=== PATIENT | male | born 1995 | race Caucasian/White ===

== ENCOUNTER 2022-02-16 14:36 | Inpatient (IN) | payer OTHER, SELFPAY ==
[2022-02-16 14:45] VITALS: BP 130/90; PULSE 98; O2SAT 98
[2022-02-16 14:46] VITALS: BP 120/84; PULSE 95; RESP 16; TEMP 37.2; O2SAT 95; BMI 26.4
--- NOTE | 2022-02-16 14:46 | ED_ITS ---
HPI - Psych General Chief Complaint: Psychiatric Symptoms Stated Complaint: CRISIS,SEC 12,PARANOID PER EMS Time Seen by Provider: 02/16/22 14:45 Source: patient Mode of arrival: EMS Limitations: other (will not answer questions just shakes head yes or no) History of Present Illness HPI Narrative: 26 yo male with schizoaffective disorder here with c/o hearing and seeing things, naked in the street, decompensated behaviors. already has bed in place, S12 from community MD complaint: feels depressed, anxiety and hallucinations Onset (ago): day(s) Duration: getting worse History of same: Yes Relieving factors: none Exacerbating factors: other Context: not taking psychiatric medications Associated psychiatric symptoms: auditory hallucinations and delusions Associated symptoms: denies other symptoms Treatments prior to arrival: placed on mental health hold Related Data Allergies Allergy/AdvReac Type Severity Reaction Status Date / Time No Known Allergies Allergy Verified 02/16/22 14:51 Review of Systems Review of Systems: ROS unable to be obtained due to will not answer questions but when I ask if he has medical concerns shakes his head no PMFSH Past Medical History Attestation statement: The following information was validated with the patient. Medical History Schizoaffective disorder Social History Social History (Updated 02/16/22 @ 14:59 by Christina Cummings DO) Patient Tobacco Use Status: Tobacco use Unknown Physical Exam Vital Signs: Vital Signs: Last Vital Signs Temp 98.9 F 02/16/22 14:46 Pulse 95 02/16/22 14:46 Resp 16 02/16/22 14:46 BP 120/84 02/16/22 14:46 Pulse Ox 95 02/16/22 14:46 O2 Del Method 02/16/22 14:46 BMI result Body Mass Index 26.4 Appearance: Alert. will not answer questions shakes head yes or no. No acute distress. Eyes: Pupils equal, round and reactive to light. ENT: Pharynx normal. atraumatic Neck: Normal inspection. Neck supple. CVS: Normal heart rate and rhythm. Pulses normal. Respiratory: No respiratory distress. Breath sounds normal. Abdomen: Soft and nontender. Skin: Skin warm and dry. Normal skin color. Extremities: No lower extremity edema. Neuro: will not answer questions No motor deficit. No sensory deficit. cannot participate in CN exam MDM - Psych MDM Narrative Medical decision making narrative: 26 yo male with hx of shizoaffective disorder he is here not really speaking but nodding yes or no appropriately he is decompensated and is on S12 - will need labs, EKG, admission Lab Data Result diagrams: 02/16/22 15:26 02/16/22 15:26 Labs: Lab Results 02/16/22 02/16/22 02/16/22 Range/Units 15:26 15:26 15:26 WBC 9.4 (4.8-10.8) X10*3/uL RBC 5.23 (4.60-5.80) X10*6/uL Hgb 14.9 (14.0-18.0) g/dl Hct 44.5 (42.0-52.0) % MCV 85.1 (80.0-98.0) fL MCH 28.5 (27.0-33.0) pg MCHC 33.5 (31.0-36.0) g/dl RDW 12.1 (11.0-16.0) % Plt Count 313 (160-400) X10*3/uL MPV 10.0 (9.4-12.4) fL Immature Gran % (Auto) 0.5 H (0.0-0.4) % Neut % (Auto) 63.0 (45-73) % Lymph % (Auto) 26.8 (20-40) % [place] % (Auto) 7.2 (2-11) % Eos % (Auto) 1.9 (0-4) % Baso % (Auto) 0.6 (0-2) % Lymph # (Auto) 2.5 (1.2-4.9) X10*3/uL [place] # (Auto) 0.7 (0.1-1.2) X10*3/uL Eos # (Auto) 0.2 (0.0-0.4) X10*3/uL Baso # (Auto) 0.1 (0.0-0.2) X10*3/uL Abs Immat Gran (auto) 0.05 H (0.00-0.03) X10*3/uL Absolute Neuts (auto) 5.9 (2.0-8.3) x10*3/uL Absolute Nucleated RBC 0.000 (0.0-0.012) X10*3/uL Nucleated RBC % (auto) 0.0 (0.0-0.2) /100WBC Sodium 141 (135-145) mmol/L Potassium 4.2 (3.3-5.1) mmol/L Chloride 106 (96-108) mmol/L Carbon Dioxide 27 (22-29) mmol/L Anion Gap 12 (12-20) BUN 13 (9-16) mg/dL Creatinine 0.98 (0.5-1.4) mg/dL Estim Creat Clear Calc 124.2 Estimated GFR > 60 Random Glucose 93 (60-115) mg/dL Calcium 9.7 (8.4-10.2) mg/dL Total Bilirubin 0.4 (0.0-1.0) mg/dL Direct Bilirubin 0.2 (0.0-0.5) mg/dL AST 20 (5-37) U/L ALT 26 (0-40) U/L Alkaline Phosphatase 115 (39-117) U/L Total Protein 7.4 (6.5-8.0) g/dL Albumin 4.4 (3.5-5.0) g/dL COVID-19 (THOR) Negative (Negative) COVID-19 Clin Com See Note ECG Data Attestation: I personally reviewed and interpreted this ECG as follows: ECG interpretation date: 02/16/22 ECG interpretation time: 15:47 Interpretation: Rate: 73 Rhythm: NSR [place]: normal Normal P waves. Normal JOHNNIE. Normal QRS complex. ST T wave : normal no JACQUES qTC: normal prior studies: no acute ischemia The study has been interpreted contemporaneously by me. . Discharge Plan Discharge Clinical Impression: Schizoaffective disorder Qualifiers: Schizoaffective disorder type: unspecified Qualified Code(s): F25.9 - Schizoaffective disorder, unspecified Patient Disposition: Admitted As Inpatient
--- NOTE | 2022-02-16 14:51 | ECG_ITS ---
Test Reason : MED CLEARANCE Blood Pressure : / mmHG Vent. Rate : 073 BPM Atrial Rate : 073 BPM P-R Int : 146 ms QRS Dur : 094 ms QT Int : 392 ms P-R-T Axes : 055 073 057 degrees QTc Int : 431 ms Normal sinus rhythm Normal ECG No previous ECGs available Referred By: Christina Cummings Electronically Signed By:HALI KUMAR MD
[2022-02-16 15:31] LABS: MANUAL DIFF FLAG NO
[2022-02-16 15:32] LABS: Basophils Absolute Auto 0.1 X10*3/uL (0.0-0.2); Basophils Percent Auto 0.6 % (0-2); Eosinophils Absolute Auto 0.2 X10*3/uL (0.0-0.4); Eosinophils Percent Auto 1.9 % (0-4); Hematocrit 44.5 % (42.0-52.0); Hemoglobin 14.9 g/dl (14.0-18.0); Imm Gran Abs Auto 0.05 X10*3/uL (0.00-0.03); Imm Gran Pct Auto 0.5 % (0.0-0.4); Lymphocytes Absolute Auto 2.5 X10*3/uL (1.2-4.9); Lymphocytes Percent Auto 26.8 % (20-40); Mean Corpuscular HGB Conc 33.5 g/dl (31.0-36.0); Mean Corpuscular Hemoglobin 28.5 pg (27.0-33.0); Mean Corpuscular Volume 85.1 fL (80.0-98.0); Monocytes Absolute Auto 0.7 X10*3/uL (0.1-1.2); Monocytes Percent Auto 7.2 % (2-11); Neutrophils Absolute Auto 5.9 x10*3/uL (2.0-8.3); Platelet Count 313 X10*3/uL (160-400); Red Blood Count 5.23 X10*6/uL (4.60-5.80); Red Cell Distribution Width 12.1 % (11.0-16.0); White Blood Count 9.4 X10*3/uL (4.8-10.8)
[2022-02-16 15:50] LABS: Alanine Aminotransferase 26 U/L (0-40); Albumin Level 4.4 g/dL (3.5-5.0); Alkaline Phosphatase 115 U/L (39-117); Anion Gap 12 (12-20); Aspartate Amino Transferase 20 U/L (5-37); Bilirubin Direct 0.2 mg/dL (0.0-0.5); Bilirubin Total 0.4 mg/dL (0.0-1.0); Blood Urea Nitrogen 13 mg/dL (9-16); COVID-19 Test Negative (Negative); Calcium 9.7 mg/dL (8.4-10.2); Carbon Dioxide 27 mmol/L (22-29); Chloride 106 mmol/L (96-108); Creatinine Clr Calc Pharmacy 124.2; Estimated Glomerular Filt Rate > 60; Glucose Random 93 mg/dL (60-115); IDNOW Serial# 16C4AD1C; Potassium 4.2 mmol/L (3.3-5.1); Sodium 141 mmol/L (135-145); Total Protein 7.4 g/dL (6.5-8.0)
[2022-02-16 18:50] VITALS: BP 124/87; PULSE 102; RESP 19; TEMP 36.6; O2SAT 96
--- NOTE | 2022-02-16 18:51 | PC.NURSE ---
GUILHERME Wiley notified about patients HR. Patient has yet to give a urine sample because he says he did not drink enough water today. Provider notified
--- NOTE | 2022-02-16 19:22 | PC.NURSE ---
Addendum entered by Meg Mata RN 02/16/22 21:28: Report given to PANCHO Raya Original Note: report received from PANCHO Anton pt is appear asleep no signs of acute distress notice breathing equally unlabored close monitoring maintained
[2022-02-16 20:52] LABS: Amphetamine Screen Urine Not Detected (Not Detect); Barbiturates, Urine Not Detected (Not Detect); Benzodiazepines Screen Urine Not Detected (Not Detect); Cannabinoid Screen Urine Not Detected (Not Detect); Cocaine Screen Urine Not Detected (Not Detect); Fentanyl, urine Not Detected (Not Detect); Opiate Screen Urine Not Detected (Not Detect); Phencyclidine Screen Urine Not Detected (Not Detect)
--- NOTE | 2022-02-16 23:04 | PC.NURSE ---
Pt was admitted to M3 at 2155 from [facility] on a CV for treatment of Unspecified schizophrenia spectrum and other psychotic disorder. Precipitants of admission include refusal to engage with others, playing video games all day and night, becoming angry while playing, planning to be arrested walking down the street nude.? Pt is A&O, INAD, pleasant and cooperative, delayed responses, flat and restricted affect, uses some humor. Mood is detached.? Denies hallucinations. Appears internally preoccupied. Thought blocking but linear, gives short answers. Denies ideation/plan/intent to harm self or others. Good appetite: Ate a sandwich, pudding, ice cream and drank two milks during assessment. Denies sleep issues, takes benadryl if needed. Substance issues: Denies. Medical issues: Denies. Physical complaint. Denies Safety checks: Q15 Pt stated DM was involved in his care but did not specify.
[2022-02-17 06:00] VITALS: BP 127/80; PULSE 91; RESP 16; TEMP 36.9; O2SAT 99
[2022-02-17 07:00] VITALS: BMI 27.4
[2022-02-17 09:34] LABS: Cholesterol 168 mg/dL; HDL Cholesterol 32 mg/dL; LDL Cholesterol Calculated 116 mg/dl; Magnesium 2.2 mg/dL (1.6-2.6); Triglycerides 101 mg/dL
[2022-02-17 09:40] LABS: Estimated Average Glucose 105 mg/dL; Hemoglobin A1c % 5.3 %
[2022-02-17 09:58] LABS: Free T4 (Free Thyroxine) 1.08 ng/dL (0.71-1.85); Thyroid Stimulating Hormone 0.63 uIU/mL (0.32-4.0)
[2022-02-17 10:16] LABS: Folate 13.1 ng/mL (> or = 4.0); Vitamin B12 724 pg/mL (200-900)
[2022-02-17] MEDS: ARIPiprazole 5 MG TABLET PO (12:05)
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
[2022-02-17 21:00] VITALS: BP 119/74; PULSE 101; RESP 20; TEMP 36.5; O2SAT 95
[2022-02-17] MEDS: lamoTRIgine 100 MG TABLET PO (21:11)
[2022-02-17] MEDS: Acetaminophen 325 MG TABLET 650 MG PO (21:11)
[2022-02-17] MEDS: traZODone HCL 50 MG TABLET PO (21:12)
[2022-02-18 08:45] VITALS: BP 121/74; PULSE 108; RESP 18; TEMP 36.8; O2SAT 98
[2022-02-18] MEDS: ARIPiprazole 5 MG TABLET PO (08:46)
--- NOTE | 2022-02-18 15:56 | P.PNPSI_ITS ---
Subjective Subjective Date of Service: 02/18/22 Reason For Visit: Schizoaffective disorder Interim History: calm, cooperative. aware he is awaiting abilify CERDA. no complaints or requests. per staff, not attending groups. withdrawn. isolative to his bed. minimally interactive. med-compliant. sleeping well. Mental Status Exam Mental Status Exam Narrative: calm, cooperative, adequately dressed and groomed. tall and rangy. no PMA/PMR. speech nml in rate, amount, loudness. somewhat flattened tone. thoughts linear and logical. affect constricted, hypo-intense, non-labile. no SI/HI/AVH expressed. Diagnostics Vital Signs (24Hr): Vital Signs - 24 hr 02/17/22 21:00 02/18/22 08:45 Temperature 97.7 F 98.3 F Pulse Rate 101 H 108 H Respiratory Rate 20 18 Blood Pressure 119/74 121/74 Pulse Oximetry 95 98 Oxygen Delivery Method Room Air Room Air BMI result Body Mass Index 27.4 Labs Results: 02/16/22 15:26 02/16/22 15:26 Labs: Laboratory Results - last 48 hr 02/16/22 02/17/22 02/17/22 20:28 09:03 09:03 Estimat Average Glucose 105 Hemoglobin A1c % 5.3 Magnesium 2.2 Triglycerides 101 Cholesterol 168 LDL Cholesterol, Calc 116 HDL Cholesterol 32 Vitamin B12 Folate TSH 0.63 Free T4 1.08 Urine Opiates Screen Not Detected Urine Fentanyl Screen Not Detected Ur Barbiturates Screen Not Detected Ur Phencyclidine Scrn Not Detected Ur Amphetamines Screen Not Detected U Benzodiazepines Scrn Not Detected Urine Cocaine Screen Not Detected U Marijuana (THC) Screen Not Detected 02/17/22 09:03 Estimat Average Glucose Hemoglobin A1c % Magnesium Triglycerides Cholesterol LDL Cholesterol, Calc HDL Cholesterol Vitamin B12 724 Folate 13.1 TSH Free T4 Urine Opiates Screen Urine Fentanyl Screen Ur Barbiturates Screen Ur Phencyclidine Scrn Ur Amphetamines Screen U Benzodiazepines Scrn Urine Cocaine Screen U Marijuana (THC) Screen Medications Medications Current Medications Acetaminophen (Acetaminophen 325 Mg Tablet) 650 mg PO Q6H PRN PRN Reason: Headache/Pain Mild Scale (1-3) Last Admin: 02/17/22 21:11 Dose: 650 mg Al Hydroxide/Mg Hydroxide (Magnesium Hydrox/Alum Hydrox 30 Ml Oral.Susp) 30 ml PO Q6H PRN PRN Reason: Heartburn/Nausea Aripiprazole (Aripiprazole 5 Mg Tablet) 5 mg PO DAILY REPLACED BY [facility] Last Admin: 02/18/22 08:46 Dose: 5 mg Hydroxyzine HCl (Hydroxyzine Hcl 25 Mg Tablet) 25 mg PO Q6H PRN PRN Reason: Anxiety Lamotrigine (Lamotrigine 100 Mg Tablet) 100 mg PO BEDTIME BROCK Last Admin: 02/17/22 21:11 Dose: 100 mg Magnesium Hydroxide (Milk Of Magnesia 30 Ml Oral.Susp) 30 ml PO DAILY PRN PRN Reason: Constipation Trazodone HCl (Trazodone Hcl 50 Mg Tablet) 50 mg PO BEDTIME PRN PRN Reason: Insomnia Last Admin: 02/17/22 21:12 Dose: 50 mg Allergies Allergies Allergy/AdvReac Type Severity Reaction Status Date / Time No Known Allergies Allergy Verified 02/16/22 14:51 Assessment & Plan Assessment & Plan (1) Schizoaffective disorder: Qualifiers: Schizoaffective disorder type: unspecified Qualified Code(s): F25.9 - Schizoaffective disorder, unspecified Status: Acute Code(s): F25.9 - Schizoaffective disorder, unspecified Plan 02/17: pt wants to restart abilify CERDA. will give PO 5 mg today and order injections for restart from [facility] for delivery (done 02/17). continue lamictal 100 mg at HS for now. collect collateral. 02/18: stable. med-compliant. sleeping well. meds delivered from [facility] pharmacy, start today. I spent __25____ minutes with the patient and/or on the patient floor today, greater than?50% of which was spent counseling/coordinating care. Reason for contiued inpatient stay Substantial Risk for: harm to self, inability to function and rapid decompensation
[2022-02-18] MEDS: Acetaminophen 325 MG TABLET 650 MG PO (16:20)
[2022-02-18] MEDS: diphenhydrAMINE HCL 25 MG CAPSULE 50 MG PO (18:02)
[2022-02-18 20:15] VITALS: BP 127/83; PULSE 85; RESP 16; TEMP 36.5; O2SAT 95
[2022-02-18] MEDS: traZODone HCL 50 MG TABLET PO (21:09)
[2022-02-18] MEDS: lamoTRIgine 100 MG TABLET PO (21:09)
[2022-02-19 08:36] VITALS: BP 119/74; PULSE 93; RESP 16; TEMP 36.3; O2SAT 96
--- NOTE | 2022-02-19 10:26 | P.PNPSI_ITS ---
Subjective Subjective Date of Service: 02/19/22 Reason For Visit: Schizoaffective disorder Interim History: calm, cooperative. pt denies discomfort. no complaints or requests. per staff, not attending groups. withdrawn. isolative to his bed. minimally interactive. med-compliant. sleeping well. Medication Compliance: Yes Side effects from medications: No Attending Groups: No Review of Systems Acute medical concerns: No Medical Review of Systems: unchanged Review of Systems Review of Systems ROS unable to be obtained due to will not answer questions but when I ask if he has medical concerns shakes his head no Mental Status Exam Mental Status Exam Narrative: calm, cooperative, adequately dressed and groomed. speech nml in rate, amount, loudness. somewhat flattened tone. thoughts linear and logical. affect constricted, hypo-intense, non-labile. no SI/HI/AVH expressed. Diagnostics Vital Signs (24Hr): Vital Signs - 24 hr 02/18/22 20:15 02/19/22 08:36 Temperature 97.7 F 97.4 F Pulse Rate 85 93 Respiratory Rate 16 16 Blood Pressure 127/83 119/74 Pulse Oximetry 95 96 Oxygen Delivery Method Room Air Room Air BMI result Body Mass Index 27.4 Labs Results: 02/16/22 15:26 02/16/22 15:26 Medications Medications Current Medications Acetaminophen (Acetaminophen 325 Mg Tablet) 650 mg PO Q6H PRN PRN Reason: Headache/Pain Mild Scale (1-3) Last Admin: 02/18/22 16:20 Dose: 650 mg Al Hydroxide/Mg Hydroxide (Magnesium Hydrox/Alum Hydrox 30 Ml Oral.Susp) 30 ml PO Q6H PRN PRN Reason: Heartburn/Nausea Hydroxyzine HCl (Hydroxyzine Hcl 25 Mg Tablet) 25 mg PO Q6H PRN PRN Reason: Anxiety Lamotrigine (Lamotrigine 100 Mg Tablet) 100 mg PO BEDTIME BROCK Last Admin: 02/18/22 21:09 Dose: 100 mg Magnesium Hydroxide (Milk Of Magnesia 30 Ml Oral.Susp) 30 ml PO DAILY PRN PRN Reason: Constipation Trazodone HCl (Trazodone Hcl 50 Mg Tablet) 50 mg PO BEDTIME PRN PRN Reason: Insomnia Last Admin: 02/18/22 21:09 Dose: 50 mg Allergies Allergies Allergy/AdvReac Type Severity Reaction Status Date / Time No Known Allergies Allergy Verified 02/16/22 14:51 Assessment & Plan Assessment & Plan (1) Schizoaffective disorder: Qualifiers: Schizoaffective disorder type: unspecified Qualified Code(s): F25.9 - Schizoaffective disorder, unspecified Status: Acute Code(s): F25.9 - Schizoaffective disorder, unspecified Plan 02/17: pt wants to restart abilify CERDA. will give PO 5 mg today and order injections for restart from [facility] for delivery (done 02/17). continue lamictal 100 mg at HS for now. collect collateral. 02/18: stable. med-compliant. sleeping well. meds delivered from [facility] pharmacy, start today. 02/19 Continue treatment plan I spent __15____ minutes with the patient and/or on the patient floor today, greater than?50% of which was spent counseling/coordinating care. Reason for contiued inpatient stay Substantial Risk for: inability to function and rapid decompensation
[2022-02-19] MEDS: hydrOXYzine HCL 25 MG TABLET PO (16:08)
[2022-02-19 19:59] VITALS: BP 127/77; PULSE 93; RESP 18; TEMP 36.7; O2SAT 100
[2022-02-19] MEDS: traZODone HCL 50 MG TABLET PO (20:09)
[2022-02-19] MEDS: lamoTRIgine 100 MG TABLET PO (20:09)
[2022-02-20] MEDS: hydrOXYzine HCL 25 MG TABLET PO ×3 (08:10→22:23)
[2022-02-20 08:11] VITALS: BP 109/69; PULSE 100; RESP 17; TEMP 36.8; O2SAT 95
[2022-02-20] MEDS: Acetaminophen 325 MG TABLET 650 MG PO (18:04)
[2022-02-20 22:15] VITALS: BP 145/88; PULSE 90; RESP 18; TEMP 36.5; O2SAT 98
[2022-02-20] MEDS: traZODone HCL 50 MG TABLET PO (22:19)
[2022-02-20] MEDS: lamoTRIgine 100 MG TABLET PO (22:19)
[2022-02-21 08:27] VITALS: BP 110/80; PULSE 99; RESP 17; TEMP 36.6; O2SAT 98
[2022-02-21] MEDS: hydrOXYzine HCL 25 MG TABLET PO ×2 (08:42→15:25)
[2022-02-21] MEDS: Acetaminophen 325 MG TABLET 650 MG PO ×2 (08:42→15:25)
[2022-02-21] MEDS: LORazepam 1 MG TABLET PO ×2 (12:43→17:15)
--- NOTE | 2022-02-21 16:01 | HO.PSYCHPN ---
Subjective Subjective Date of Service: 02/21/22 Reason For Visit: Schizoaffective disorder Interim History: calm, cooperative. more animated today than prior. states he is feeling a lot better, more 'with it.' not seen out on the unit, isolative to room. asking for discharge today, saying he is fearful of staying here again tonight, having panic attacks in bed, says he just needs to leave to be with his grandpa. informed pt we need to verify he can return there and make aftercare appointments for him first. per staff, denies SI/HI/AVH. visible, napping days. denies anx/dep. eating and sleeping well. asking for discharge. received aristada on monday. Mental Status Exam Mental Status Exam Narrative: calm, cooperative, adequately dressed and groomed. speech nml in rate, incr amount, nml loudness, nml tone. thoughts linear and logical. affect more flexible, normo-intense, non-labile. no SI/HI/AVH expressed. Diagnostics Vital Signs (24Hr): Vital Signs - 24 hr 02/20/22 22:15 02/21/22 08:27 Temperature 97.7 F 97.9 F Pulse Rate 90 99 Respiratory Rate 18 17 Blood Pressure 145/88 H 110/80 Pulse Oximetry 98 98 Oxygen Delivery Method Room Air Room Air BMI result Body Mass Index 27.4 Labs Results: 02/16/22 15:26 02/16/22 15:26 Medications Medications Current Medications Acetaminophen (Acetaminophen 325 Mg Tablet) 650 mg PO Q6H PRN PRN Reason: Headache/Pain Mild Scale (1-3) Last Admin: 02/21/22 15:25 Dose: 650 mg Al Hydroxide/Mg Hydroxide (Magnesium Hydrox/Alum Hydrox 30 Ml Oral.Susp) 30 ml PO Q6H PRN PRN Reason: Heartburn/Nausea Hydroxyzine HCl (Hydroxyzine Hcl 25 Mg Tablet) 25 mg PO Q6H PRN PRN Reason: Anxiety Last Admin: 02/21/22 15:25 Dose: 25 mg Lamotrigine (Lamotrigine 100 Mg Tablet) 100 mg PO BEDTIME BROCK Last Admin: 02/20/22 22:19 Dose: 100 mg Lorazepam (Lorazepam 1 Mg Tablet) 2 mg PO BEDTIME BROCK Lorazepam (Lorazepam 1 Mg Tablet) 1 mg PO Q4H PRN PRN Reason: agitation Last Admin: 02/21/22 12:43 Dose: 1 mg Magnesium Hydroxide (Milk Of Magnesia 30 Ml Oral.Susp) 30 ml PO DAILY PRN PRN Reason: Constipation Trazodone HCl (Trazodone Hcl 50 Mg Tablet) 50 mg PO BEDTIME PRN PRN Reason: Insomnia Last Admin: 02/20/22 22:19 Dose: 50 mg Allergies Allergies Allergy/AdvReac Type Severity Reaction Status Date / Time No Known Allergies Allergy Verified 02/16/22 14:51 Assessment & Plan Assessment & Plan (1) Schizoaffective disorder: Qualifiers: Schizoaffective disorder type: unspecified Qualified Code(s): F25.9 - Schizoaffective disorder, unspecified Status: Acute Code(s): F25.9 - Schizoaffective disorder, unspecified Plan 02/17: pt wants to restart abilify CERDA. will give PO 5 mg today and order injections for restart from [facility] for delivery (done 02/17). continue lamictal 100 mg at HS for now. collect collateral. 02/18: stable. med-compliant. sleeping well. meds delivered from [facility] pharmacy, start today. 02/19 Continue treatment plan 02/21: add ativan 2 mg at HS due to expressed anxiety at HS. also ativan 1 mg Q4H PRN anxiety. got aristada initio monday, will give second IM prior to discharge. I spent ___25___ minutes with the patient and/or on the patient floor today, greater than?50% of which was spent counseling/coordinating care. Reason for contiued inpatient stay Substantial Risk for: inability to function and rapid decompensation
[2022-02-21 19:57] VITALS: BP 137/71; PULSE 86; RESP 18; TEMP 35.9; O2SAT 99
[2022-02-21] MEDS: traZODone HCL 50 MG TABLET PO (19:59)
[2022-02-21] MEDS: LORazepam 1 MG TABLET 2 MG PO (19:59)
[2022-02-21] MEDS: lamoTRIgine 100 MG TABLET PO (19:59)
[2022-02-22] MEDS: LORazepam 1 MG TABLET PO ×5 (04:04→23:23)
[2022-02-22] MEDS: hydrOXYzine HCL 25 MG TABLET PO ×3 (07:20→23:23)
[2022-02-22 08:40] VITALS: BP 136/78; PULSE 95; RESP 18; TEMP 36.7; O2SAT 98
--- NOTE | 2022-02-22 09:53 | PC.NURSE ---
Pt reports difficulty sleeping x last 3 nights. He cannot recall having a sleep issue in the past and attributes his poor sleep to being in the hospital. He does note moderate to severe agitation, present throughout the day and evening, unrelieved by prn ativan and hydroxyzine. It's just because I want to leave. he says, however, this sports writer questions medication side effect and medication provider Dr Frankel was informed.
[2022-02-22] MEDS: Acetaminophen 325 MG TABLET 650 MG PO (13:06)
--- NOTE | 2022-02-22 16:00 | HO.PSYCHPN ---
Subjective Subjective Date of Service: 02/22/22 Reason For Visit: Schizoaffective disorder Interim History: calm, cooperative. asking for discharge. appears more relaxed, less wooden than earlier on in his admission. discussion held around his apparent agitation and perhaps need to trial cogentin. pt reports he has been on this medication for months in the past and has not felt like this, declining cogentin trial. per staff, taking lots of PRNs. appears to be RIS. not attending groups. denies SI/HI. denies AVH. reports sleeping well and also reports not sleeping well. agitated at being in the hospital, poor sleep past 3 nights. asking for lots of PRNs getting ativan, trazodone for sleep. Mental Status Exam Mental Status Exam Narrative: calm, cooperative, adequately dressed and groomed. speech nml in rate, amount, loudness, latency. flattened tone. thoughts linear and questionably logical. affect more flexible, normo-intense, non-labile. no SI/HI/AVH expressed. Diagnostics Vital Signs (24Hr): Vital Signs - 24 hr 02/21/22 19:57 02/22/22 08:40 Temperature 96.7 F L 98.0 F Pulse Rate 86 95 Respiratory Rate 18 18 Blood Pressure 137/71 136/78 Pulse Oximetry 99 98 Oxygen Delivery Method Room Air Room Air BMI result Body Mass Index 27.4 Labs Results: 02/16/22 15:26 02/16/22 15:26 Medications Medications Current Medications Acetaminophen (Acetaminophen 325 Mg Tablet) 650 mg PO Q6H PRN PRN Reason: Headache/Pain Mild Scale (1-3) Last Admin: 02/22/22 13:06 Dose: 650 mg Al Hydroxide/Mg Hydroxide (Magnesium Hydrox/Alum Hydrox 30 Ml Oral.Susp) 30 ml PO Q6H PRN PRN Reason: Heartburn/Nausea Chlorpromazine HCl (Chlorpromazine Hcl 25 Mg Tablet) 25 mg PO Q4H PRN PRN Reason: agitation Hydroxyzine HCl (Hydroxyzine Hcl 25 Mg Tablet) 25 mg PO Q6H PRN PRN Reason: Anxiety Last Admin: 02/22/22 13:06 Dose: 25 mg Lamotrigine (Lamotrigine 100 Mg Tablet) 100 mg PO BEDTIME BROCK Last Admin: 02/21/22 19:59 Dose: 100 mg Lorazepam (Lorazepam 1 Mg Tablet) 2 mg PO BEDTIME BROCK Last Admin: 02/21/22 19:59 Dose: 2 mg Lorazepam (Lorazepam 1 Mg Tablet) 1 mg PO Q4H PRN PRN Reason: agitation Last Admin: 02/22/22 13:06 Dose: 1 mg Magnesium Hydroxide (Milk Of Magnesia 30 Ml Oral.Susp) 30 ml PO DAILY PRN PRN Reason: Constipation Trazodone HCl (Trazodone Hcl 50 Mg Tablet) 50 mg PO BEDTIME PRN PRN Reason: Insomnia Last Admin: 02/21/22 19:59 Dose: 50 mg Allergies Allergies Allergy/AdvReac Type Severity Reaction Status Date / Time No Known Allergies Allergy Verified 02/16/22 14:51 Assessment & Plan Assessment & Plan (1) Schizoaffective disorder: Qualifiers: Schizoaffective disorder type: unspecified Qualified Code(s): F25.9 - Schizoaffective disorder, unspecified Status: Acute Code(s): F25.9 - Schizoaffective disorder, unspecified Plan 02/17: pt wants to restart abilify CERDA. will give PO 5 mg today and order injections for restart from [email or web address] for delivery (done 02/17). continue lamictal 100 mg at HS for now. collect collateral. 02/18: stable. med-compliant. sleeping well. meds delivered from [email or web address] pharmacy, start today. 02/19 Continue treatment plan 02/21: add ativan 2 mg at HS due to expressed anxiety at HS. also ativan 1 mg Q4H PRN anxiety. got aristada initio monday, will give second IM prior to discharge. 02/22: no change to mgmt. pt not sleeping well since CERDA. denies physical restlessness. taking lots of PRNs, declines trial on cogentin. continue current mgmt. I spent ___25___ minutes with the patient and/or on the patient floor today, greater than?50% of which was spent counseling/coordinating care. Reason for contiued inpatient stay Substantial Risk for: inability to function and rapid decompensation
[2022-02-22] MEDS: chlorproMAZINE HCl 25 MG TABLET PO ×2 (16:16→23:23)
[2022-02-22 20:00] VITALS: PULSE 110; TEMP 36.4; O2SAT 97
[2022-02-22] MEDS: LORazepam 1 MG TABLET 2 MG PO (20:34)
[2022-02-22] MEDS: lamoTRIgine 100 MG TABLET PO (20:35)
[2022-02-22] MEDS: traZODone HCL 50 MG TABLET PO (23:23)
[2022-02-23] MEDS: traZODone HCL 50 MG TABLET PO ×2 (02:58→20:19)
[2022-02-23] MEDS: LORazepam 1 MG TABLET PO ×4 (04:41→20:14)
[2022-02-23] MEDS: chlorproMAZINE HCl 25 MG TABLET PO ×2 (04:41→09:42)
[2022-02-23 06:00] VITALS: BP 126/74; PULSE 99; RESP 18; TEMP 36.6; O2SAT 99
[2022-02-23] MEDS: Acetaminophen 325 MG TABLET 650 MG PO (10:51)
[2022-02-23] MEDS: ARISTADA 441 EACH IM (12:52)
[2022-02-23] MEDS: hydrOXYzine HCL 25 MG TABLET PO (13:02)
--- NOTE | 2022-02-23 14:17 | HO.PSYCHPN ---
Subjective Subjective Date of Service: 02/23/22 Reason For Visit: Schizoaffective disorder Interim History: calm, cooperative. asking for abilify shot #2. asking for some PRNs for after he leaves the hospital. denies Sx, says he is fine to discharge. per staff isolative, withdrawn. attending few groups. slept days yesterday, listening to music. angry convo with grandfather yesterday. asking for lots of PRNs for agitation. Mental Status Exam Mental Status Exam Narrative: calm, cooperative, adequately dressed and groomed. speech nml in rate, amount, loudness, latency. flattened tone. thoughts linear and logical. affect full range, normo-intense, non-labile. no SI/HI/AVH expressed. Diagnostics Vital Signs (24Hr): Vital Signs - 24 hr 02/22/22 20:00 02/23/22 06:00 Temperature 97.6 F 97.8 F Pulse Rate 110 H 99 Respiratory Rate 18 Blood Pressure 126/74 Pulse Oximetry 97 99 Oxygen Delivery Method Room Air Room Air BMI result Body Mass Index 27.4 Labs Results: 02/16/22 15:26 02/16/22 15:26 Medications Medications Current Medications Acetaminophen (Acetaminophen 325 Mg Tablet) 650 mg PO Q6H PRN PRN Reason: Headache/Pain Mild Scale (1-3) Last Admin: 02/23/22 10:51 Dose: 650 mg Al Hydroxide/Mg Hydroxide (Magnesium Hydrox/Alum Hydrox 30 Ml Oral.Susp) 30 ml PO Q6H PRN PRN Reason: Heartburn/Nausea Chlorpromazine HCl (Chlorpromazine Hcl 25 Mg Tablet) 50 mg PO Q4H PRN PRN Reason: agitation Hydroxyzine HCl (Hydroxyzine Hcl 25 Mg Tablet) 25 mg PO Q6H PRN PRN Reason: Anxiety Last Admin: 02/23/22 13:02 Dose: 25 mg Lamotrigine (Lamotrigine 25 Mg Tablet) 125 mg PO BEDTIME BROCK Lorazepam (Lorazepam 1 Mg Tablet) 2 mg PO BEDTIME BROCK Last Admin: 02/22/22 20:34 Dose: 2 mg Lorazepam (Lorazepam 1 Mg Tablet) 1 mg PO Q4H PRN PRN Reason: agitation Last Admin: 02/23/22 09:42 Dose: 1 mg Magnesium Hydroxide (Milk Of Magnesia 30 Ml Oral.Susp) 30 ml PO DAILY PRN PRN Reason: Constipation Trazodone HCl (Trazodone Hcl 50 Mg Tablet) 50 mg PO BEDTIME PRN PRN Reason: Insomnia Last Admin: 02/23/22 02:58 Dose: 50 mg Allergies Allergies Allergy/AdvReac Type Severity Reaction Status Date / Time No Known Allergies Allergy Verified 02/16/22 14:51 Assessment & Plan Assessment & Plan (1) Schizoaffective disorder: Qualifiers: Schizoaffective disorder type: unspecified Qualified Code(s): F25.9 - Schizoaffective disorder, unspecified Status: Acute Code(s): F25.9 - Schizoaffective disorder, unspecified Plan 02/17: pt wants to restart abilify CERDA. will give PO 5 mg today and order injections for restart from [facility] for delivery (done 02/17). continue lamictal 100 mg at HS for now. collect collateral. 02/18: stable. med-compliant. sleeping well. meds delivered from [facility] pharmacy, start today. 02/19 Continue treatment plan 02/21: add ativan 2 mg at HS due to expressed anxiety at HS. also ativan 1 mg Q4H PRN anxiety. got aristada initio monday, will give second IM prior to discharge. 02/22: no change to mgmt. pt not sleeping well since CERDA. denies physical restlessness. taking lots of PRNs, declines trial on cogentin. continue current mgmt. 02/23: cut down on ativan PRNs in preparation for discharge tomorrow. thorazine effective, increase dose to 50 mg each. received aristada 441 mg IM today. I spent __25____ minutes with the patient and/or on the patient floor today, greater than?50% of which was spent counseling/coordinating care. Reason for contiued inpatient stay Substantial Risk for: inability to function and rapid decompensation
[2022-02-23] MEDS: chlorproMAZINE HCl 25 MG TABLET 50 MG PO ×2 (15:31→20:15)
[2022-02-23 19:10] VITALS: BP 142/98; PULSE 116; RESP 16; TEMP 36.6; O2SAT 97
[2022-02-23] MEDS: lamoTRIgine 25 MG TABLET 125 MG PO (20:14)
[2022-02-24] MEDS: chlorproMAZINE HCl 25 MG TABLET 50 MG PO ×3 (00:20→10:43)
[2022-02-24] MEDS: LORazepam 1 MG TABLET PO ×2 (00:21→08:08)
[2022-02-24] MEDS: Acetaminophen 325 MG TABLET 650 MG PO (05:49)
[2022-02-24] MEDS: hydrOXYzine HCL 25 MG TABLET PO (05:49)
[2022-02-24 08:00] VITALS: BP 133/81; PULSE 121; RESP 99; TEMP 36.6; O2SAT 99
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
== END 2022-02-24 12:18 | disposition home or self-care (01) | DRG 750 ==
LOC: HO.ED 16:26 → HO.PADLT16 20:20
PROVIDERS: Admitting Provider Clinical Nurse Specialist Psychiatric/Mental Health, Adult; Emergency Provider Emergency Medicine; PCP Hospitalist; Visit Provider Clinical Nurse Specialist Psychiatric/Mental Health, Adult
DX: F25.9 Schizoaffective disorder, unspecified (principal); Z20.822 Contact with and (suspected) exposure to COVID-19; Z23 Encounter for immunization; Z79.899 Other long term (current) drug therapy
CPT/HCPCS: 36415; 80048; 80061; 80076; 80307; 82607; 82746; 83036; 83735; 84439; 84443; 85025; 87635; 90686; 93005; 99284